=== PATIENT | male | born 1945 | race Caucasian/White ===

== ENCOUNTER 2018-03-03 03:22 | Inpatient (IN) | payer OTHER ==
[2018-03-03] VITALS (16 sets, daily range): BP systolic 104–129; BP diastolic 63–90
[~2018-03-03] VITALS: Ht 180.3 cm; Wt 89.7 kg
[~2018-03-03 03:22] MED LIST: Ecotrin PO; PRAVASTATIN SOD40 MG PO
[2018-03-03] MEDS ORDERED: PROVENTIL,2.5 MG/3 M IH (03:36)
[2018-03-03] MEDS ORDERED: XANAX1 MG PO (03:36)
[2018-03-03] MEDS ORDERED: LOPRESSOR25 MG PO (03:38)
[2018-03-03] MEDS ORDERED: LORCET 5-325 M1 EACH PO (03:38)
[2018-03-03] MEDS ORDERED: XARELTO20 MG PO (03:38)
[2018-03-03 03:46] LABS: BASE EXCESS 3.8 mEq/L (-3 to +3); BICARBONATE 33.4 mEq/L (22-26); CARBOXY HGB 2.5 % (0-5); COMMENTS - BLOOD GASES C+A+; DEVICE NIV; FI02 40 %; METHEMOGLOBIN 0.9 % (0-1.5); MODE SPONT; PCO2 71 mm Hg (35-45); PEEP 10 CM/H20; PO2 73 mm Hg (80-100); PRES. SUPPORT 10 CM/H2O; SITE RR; TOTAL RESP RATE 12 resp/min; pH 7.28 (7.35-7.45)
[2018-03-03 03:51] LABS: INTER. NORMALIZED RATIO 1.7
[2018-03-03 03:54] LABS: PTT 36.7 SEC (25-37)
[2018-03-03 03:55] LABS: ALBUMIN 3.8 g/dL (3.2-4.8); CHLORIDE 102 mEq/L (99-109); POTASSIUM 4.9 mEq/L (3.7-5.4); SODIUM 141 mEq/L (136-147)
[2018-03-03 03:57] LABS: GLUCOSE 155 mg/dL (70-99)
[2018-03-03 03:58] LABS: TOTAL PROTEIN 6.2 g/dL (6.4-8.3)
[2018-03-03 03:59] LABS: TOTAL BILIRUBIN 0.3 mg/dL (0.0-1.0)
[2018-03-03 04:01] LABS: ALKALINE PHOSPHATASE 66 IU/L (3-129); CREATININE 0.8 mg/dL (0.6-1.3); GFR ESTIMATE (CALCULATED) > 59 mL/min/ (58.99-99999)
[2018-03-03 04:02] LABS: UREA NITROGEN (BUN) 21 mg/dL (9-23)
[2018-03-03 04:03] LABS: AST (GOT) 19 IU/L (2-34)
[2018-03-03 04:04] LABS: ALT (GPT) 20 IU/L (3-49); HEMATOCRIT 52.1 % (38.0-50.0); HEMOGLOBIN 16.1 G/DL (12.5-16.6); LIPASE 7 U/L (1.0-51.0); MCH 32.3 PG (29.0-34.0); MCHC 30.9 G/DL (30.0-36.0); MCV 104.6 FL (86-99); RBC DIS.WIDTH-CV 13.4 % (11.8-14.6); RBC DIS.WIDTH-SD 52.3 % (39-53); RED BLOOD COUNT 4.98 M/uL (4.00-5.50); WHITE BLOOD COUNT 9.1 K/uL (4.1-10.2)
[2018-03-03 04:36] LABS: PLAT.SUFFICIENCY DECREASED; PLATELET COUNT 162 K/uL (156-360)
[2018-03-03 05:26] LABS: TROP-I INTERPRETATION NEGATIVE; TROPONIN-I < 0.01 ng/mL (0.0-0.30)
[2018-03-03 06:36] LABS: BASE EXCESS 4.8 mEq/L (-3 to +3); BICARBONATE 34.9 mEq/L (22-26); CARBOXY HGB 2.3 % (0-5); METHEMOGLOBIN 1.2 % (0-1.5); PO2 68 mm Hg (80-100)
[2018-03-03 06:37] LABS: COMMENTS - BLOOD GASES C+; DEVICE HFNC; O2 FLOW 10 L/MIN; PCO2 76 mm Hg (35-45); SITE LR; pH 7.27 (7.35-7.45)
[2018-03-03 13:57] LABS: BASE EXCESS 3.5 mEq/L (-3 to +3); BICARBONATE 33.8 mEq/L (22-26); CARBOXY HGB 1.6 % (0-5); METHEMOGLOBIN 1.3 % (0-1.5); PCO2 77 mm Hg (35-45)
[2018-03-03 13:59] LABS: COMMENTS - BLOOD GASES A+C+; DEVICE NCHF; O2 FLOW 6 L/MIN; PO2 52 mm Hg (80-100); SITE RR; pH 7.25 (7.35-7.45)
[2018-03-03 19:07] LABS: BASE EXCESS 7.2 mEq/L (-3 to +3); BICARBONATE 35.9 mEq/L (22-26); CARBOXY HGB 1.7 % (0-5); COMMENTS - BLOOD GASES C+; DEVICE VENT; FI02 45 %; METHEMOGLOBIN 1.5 % (0-1.5); MODE SPONT; PCO2 68 mm Hg (35-45); PEEP 5 CM/H20; PO2 57 mm Hg (80-100); PRES. SUPPORT 10 CM/H2O; SITE RR; TOTAL RESP RATE 16 resp/min; pH 7.33 (7.35-7.45)
[2018-03-04] VITALS (16 sets, daily range): BP systolic 96–122; BP diastolic 65–97
[2018-03-04 05:39] LABS: BASOPHIL (%) 0 % (0-1); EOSINOPHIL (%) 0 % (0-5); HEMATOCRIT 46.7 % (38.0-50.0); HEMOGLOBIN 14.4 G/DL (12.5-16.6); IMMATURE GRANULOCYTE (%) 0.5 % (0.0-0.7); LYMPHOCYTE (%) 5.3 % (15-42); LYMPHOCYTE COUNT 0.5 K/uL (1.0-2.8); MCH 31.7 PG (29.0-34.0); MCHC 30.8 G/DL (30.0-36.0); MCV 102.9 FL (86-99); MONOCYTE (%) 4.9 % (3-12); MONOCYTE COUNT 0.5 K/uL (0-0.8); NEUTROPHIL (%) 89.3 % (45-76); NEUTROPHIL COUNT 8.4 K/uL (1.8-6.4); PLATELET COUNT 160 K/uL (156-360); RBC DIS.WIDTH-CV 13.3 % (11.8-14.6); RBC DIS.WIDTH-SD 51.4 % (39-53); RED BLOOD COUNT 4.54 M/uL (4.00-5.50); WHITE BLOOD COUNT 9.4 K/uL (4.1-10.2)
[2018-03-04 05:42] LABS: BASE EXCESS 8.2 mEq/L (-3 to +3); BICARBONATE 34.9 mEq/L (22-26); CARBOXY HGB 1.7 % (0-5); METHEMOGLOBIN 1.4 % (0-1.5); PO2 58 mm Hg (80-100); pH 7.41 (7.35-7.45)
[2018-03-04 05:43] LABS: COMMENTS - BLOOD GASES C+; DEVICE VENT; FI02 40 %; MODE SPONT; PCO2 55 mm Hg (35-45); PEEP 5 CM/H20; PRES. SUPPORT 10 CM/H2O; SITE RR; TOTAL RESP RATE 18 resp/min
[2018-03-04 06:14] LABS: CHLORIDE 101 MEQ/L (99-109); CREATININE 0.7 MG/DL (0.6-1.3); GFR ESTIMATE (CALCULATED) > 59 mL/min/ (58.99-99999); GLUCOSE 147 mg/dL (70-99); POTASSIUM 4.6 MEQ/L (3.7-5.4); SODIUM 141 MEQ/L (136-147); UREA NITROGEN (BUN) 23 mg/dL (9-23)
[2018-03-05] VITALS (12 sets, daily range): BP systolic 102–134; BP diastolic 68–90
[2018-03-05 05:27] LABS: BASOPHIL (%) 0.1 % (0-1); EOSINOPHIL (%) 0 % (0-5); HEMATOCRIT 45.9 % (38.0-50.0); HEMOGLOBIN 14.4 G/DL (12.5-16.6); IMMATURE GRANULOCYTE (%) 0.5 % (0.0-0.7); LYMPHOCYTE (%) 3.6 % (15-42); LYMPHOCYTE COUNT 0.5 K/uL (1.0-2.8); MCH 31.9 PG (29.0-34.0); MCHC 31.4 G/DL (30.0-36.0); MCV 101.8 FL (86-99); MONOCYTE (%) 4.6 % (3-12); MONOCYTE COUNT 0.6 K/uL (0-0.8); NEUTROPHIL (%) 91.2 % (45-76); PLATELET COUNT 181 K/uL (156-360); RBC DIS.WIDTH-CV 13.5 % (11.8-14.6); RBC DIS.WIDTH-SD 51.2 % (39-53); RED BLOOD COUNT 4.51 M/uL (4.00-5.50); WHITE BLOOD COUNT 13.2 K/uL (4.1-10.2)
[2018-03-05 05:58] LABS: CHLORIDE 101 MEQ/L (99-109); CREATININE 0.8 MG/DL (0.6-1.3); GFR ESTIMATE (CALCULATED) > 59 mL/min/ (58.99-99999); GLUCOSE 124 mg/dL (70-99); POTASSIUM 4.6 MEQ/L (3.7-5.4); SODIUM 140 MEQ/L (136-147); UREA NITROGEN (BUN) 24 mg/dL (9-23)
[2018-03-05 06:10] LABS: BASE EXCESS 7.1 mEq/L (-3 to +3); CARBOXY HGB 1.6 % (0-5); METHEMOGLOBIN 1.2 % (0-1.5); PO2 62 mm Hg (80-100); pH 7.36 (7.35-7.45)
[2018-03-05 06:11] LABS: COMMENTS - BLOOD GASES A+C+; DEVICE HFNC; O2 FLOW 6 L/MIN; PCO2 62 mm Hg (35-45); SITE RR; TOTAL RESP RATE 20 resp/min
[2018-03-06 03:42] VITALS: BP 132/77
[2018-03-06 07:31] VITALS: BP 125/83
[2018-03-06 11:08] VITALS: BP 125/84
[2018-03-06 15:32] VITALS: BP 123/73
[2018-03-06 20:18] VITALS: BP 138/81
[2018-03-07] VITALS (7 sets, daily range): BP systolic 108–142; BP diastolic 60–84
[2018-03-07 05:54] LABS: HEMATOCRIT 47.5 % (38.0-50.0); MCH 31.4 PG (29.0-34.0); MCHC 31.6 G/DL (30.0-36.0); MCV 99.6 FL (86-99); PLATELET COUNT 182 K/uL (156-360); RBC DIS.WIDTH-CV 13.3 % (11.8-14.6); RBC DIS.WIDTH-SD 49.2 % (39-53); RED BLOOD COUNT 4.77 M/uL (4.00-5.50); WHITE BLOOD COUNT 9.8 K/uL (4.1-10.2)
[2018-03-07 06:27] LABS: CHLORIDE 100 MEQ/L (99-109); CREATININE 0.9 MG/DL (0.6-1.3); GFR ESTIMATE (CALCULATED) > 59 mL/min/ (58.99-99999); GLUCOSE 127 mg/dL (70-99); POTASSIUM 4.4 MEQ/L (3.7-5.4); SODIUM 139 MEQ/L (136-147); UREA NITROGEN (BUN) 26 mg/dL (9-23)
[2018-03-08 04:10] VITALS: BP 126/88
[2018-03-08 07:47] VITALS: BP 157/72
[2018-03-08] MEDS ORDERED: MEDROL DOSEPAK4 MG PO (11:49)
[2018-03-08 11:57] VITALS: BP 132/80
[2018-03-08] MEDS ORDERED: SYMBICORT60 INHALAT IH (12:23)
[2018-03-08] MEDS ORDERED: INCRUSE ELLI62.5 MCG IH (12:23)
== END 2018-03-08 16:00 | disposition home or self-care (01) | DRG 189 ==
LOC: EME → EDBD 03:22 → EME 03:22 → EDOF 04:50 → 4WEST 04:50 → ENRESERV 04:51 → 4WEST 05:39 → ENRESERV 03-05 13:59 → 2EAST 03-05 15:53
PROVIDERS: Emergency Medicine; Physician Assistant; Specialist; Surgery
DX: J96.21 Acute and chronic respiratory failure with hypoxia (principal); J13 Pneumonia due to Streptococcus pneumoniae; J44.0 Chronic obstructive pulmonary disease with (acute) lower respiratory infection; J44.1 Chronic obstructive pulmonary disease with (acute) exacerbation; E87.2 Acidosis; J96.22 Acute and chronic respiratory failure with hypercapnia; J98.11 Atelectasis; T17.590A Other foreign object in bronchus causing asphyxiation, initial encounter; E78.5 Hyperlipidemia, unspecified; F17.210 Nicotine dependence, cigarettes, uncomplicated; F41.9 Anxiety disorder, unspecified; I10 Essential (primary) hypertension; I27.20 Pulmonary hypertension, unspecified; I48.2 Chronic atrial fibrillation; M19.90 Unspecified osteoarthritis, unspecified site; R00.0 Tachycardia, unspecified; R23.0 Cyanosis; Z79.01 Long term (current) use of anticoagulants; X58.XXXA Exposure to other specified factors, initial encounter; Z82.49 Family history of ischemic heart disease and other diseases of the circulatory system
CPT/HCPCS: 36600; 71045; 71046; 71275; 80048; 80053; 82803; 83605; 83690; 84484; 85025; 85027; 85610; 85730; 87070; 87077; 87205; 87641; 93005; 93306; 94002; 94003; 94640; 94640 76; 94667; 94668; 94760; 94799; 99202; 99281; 99285; J0456; J0696; J2930; J7040; J7512